=== PATIENT | male | born 1975 | race Caucasian/White ===

== ENCOUNTER 2017-07-01 20:53 | Emergency (ER) | payer OTHER ==
[~2017-07-01] VITALS: Ht 175.3 cm; Wt 81.7 kg
[2017-07-01 20:54] VITALS: BP 139/86
== END 2017-07-01 21:38 | disposition home or self-care (01) ==
LOC: ER 20:53
DX: M79.672 Pain in left foot (principal); M79.671 Pain in right foot; G89.29 Other chronic pain; R23.8 Other skin changes; F17.210 Nicotine dependence, cigarettes, uncomplicated

== ENCOUNTER 2017-08-02 15:59 | Emergency (ER) | payer OTHER ==
[~2017-08-02] VITALS: Ht 175.3 cm; Wt 83.9 kg
[2017-08-02 17:20] VITALS: BP 121/74
[2018-03-14] MEDS ORDERED: CLEOCIN HCL150 MG PO (09:44)
[2018-03-17] MEDS ORDERED: DOXYCYCLINE 10100 MG PO (13:51)
[2018-03-17] MEDS ORDERED: LEVAQUIN 750 M750 MG PO (13:52)
== END 2017-08-02 17:22 | disposition home or self-care (01) ==
LOC: ER 15:59
DX: M25.561 Pain in right knee (principal); F17.210 Nicotine dependence, cigarettes, uncomplicated